=== PATIENT | male | born 1995 | race Caucasian/White ===

== ENCOUNTER 2024-01-06 00:20 | Emergency (ER) | payer MEDICAID ==
[~2024-01-06] VITALS: Ht 162.6 cm; Wt 74.0 kg
[2024-01-06 00:30] VITALS: BP 101/69; PULSE 76; RESP 18; TEMP 98.3; O2SAT 97
== END 2024-01-06 02:23 | disposition left against medical advice (07) ==
LOC: ER 00:20
DX: H57.11 Ocular pain, right eye (principal); Z53.21 Procedure and treatment not carried out due to patient leaving prior to being seen by health care provider
CPT/HCPCS: 99281

== ENCOUNTER 2024-10-08 13:58 | Emergency (ER) | payer MEDICAID ==
[~2024-10-08] VITALS: Ht 162.6 cm; Wt 82.0 kg
[2024-10-08 14:03] VITALS: BP 131/84; PULSE 88; RESP 16; TEMP 98.3; O2SAT 100
[2024-10-08] MEDS ORDERED: MAGNESIUM/ALUMINUM HYDROXIDE/SIMETHICONE 30ML UDC PO ONE (16:45)
[2024-10-08] MEDS ORDERED: FAMOTIDINE 20MG TABLET PO SCH (16:45)
[2024-10-08] MEDS ORDERED: ONDANSETRON 4MG ODT PO ONE (16:45)
[2024-10-08 17:18] LABS: EOSINOPHILS % 1.2 % (0.0-5.0); LYMPHOCYTES % 30.3 % (20.0-50.0); MEAN CORPUSCULAR HEMOGLOBIN 31.8 pg (28.0-32.0); MEAN CORPUSCULAR HGB CONC 34.2 g/dL (31.0-37.0); MEAN CORPUSCULAR VOLUME 93.2 fL (80.0-94.0); MEAN PLATELET VOLUME 7.5 fl (7.4-10.4); MONOCYTES % 9.5 % (2.0-8.0); PLATELET 406 x1000/uL (130-400); RED BLOOD CELL COUNT 5.04 mill/uL (4.7-6.1); RED CELL DISTRIBUTION WIDTH 13.3 % (11.6-14.6); WHITE BLOOD COUNT 9.5 x1000/uL (4.5-11.0)
[2024-10-08 17:20] LABS: INR 0.9; PROTHROMBIN TIME 10.6 sec (9.6-11.0)
[2024-10-08 17:27] LABS: CHLORIDE 105 mEq/L (98-107); POTASSIUM 3.7 mEq/L (3.5-5.1); SODIUM 136 mEq/L (136-145)
[2024-10-08 17:28] LABS: CALCIUM 10.3 mg/dL (8.7-10.4); CARBON DIOXIDE 25 mEq/L (21-32)
[2024-10-08 17:33] LABS: GLUCOSE 96 mg/dL (70-105); UREA NITROGEN BLOOD 11 mg/dL (9-23)
[2024-10-08 17:35] LABS: ALANINE AMINOTRANSFERASE 85 IU/L (10-49); ALBUMIN 4.7 g/dL (3.2-4.8); ASPARTATE AMINOTRANSFERASE 44 IU/L (<34); BILIRUBIN DIRECT 0.3 mg/dL (<=3.0); BILIRUBIN TOTAL 1.3 mg/dL (0.1-1.0); PROTEIN TOTAL 8.4 g/dL (6.0-8.3)
[2024-10-08 17:39] LABS: TROPONIN I HIGH SENSITIVITY < 4 ng/L (3.0-53)
[2024-10-08] MEDS ORDERED: FAMO40TA70 MT (18:28)
[2024-10-08] MEDS ORDERED: MAG-55 MT (18:28)
[2024-10-08] MEDS: MAGNESIUM/ALUMINUM HYDROXIDE/SIMETHICONE 30ML UDC PO NR (18:56)
[2024-10-08] MEDS: FAMOTIDINE 20MG TABLET PO SCH (18:57)
[2024-10-08] MEDS: ONDANSETRON 4MG ODT PO NR (18:57)
== END 2024-10-08 18:55 | disposition home or self-care (01) ==
LOC: ER 13:58
DX: K21.9 Gastro-esophageal reflux disease without esophagitis (principal); R07.9 Chest pain, unspecified
CPT/HCPCS: 36415; 71045; 76705; 80048; 80076; 83880; 84484; 85025; 93005; 99285